=== PATIENT | female | born 1965 | race Caucasian/White ===

== ENCOUNTER 2018-11-01 19:16 | Emergency (ER) | payer OTHER ==
[~2018-11-01] VITALS: Ht 162.5 cm; Wt 86.2 kg
[2018-11-01] MEDS ORDERED: EXCEDRIN EXTRA1 EACH PO (19:28)
[2018-11-01 20:03] LABS: BASO % 0.5 % (0.0-1.0); HEMATOCRIT 38.5 % (37.0-47.0); HEMOGLOBIN 12.6 g/dl (12.0-16.0); LYMPH # 2.7 10*3/uL (1.3-4.4); LYMPH % 42.6 % (27.0-41.0); MEAN CELL VOLUME 87.1 fl (81.0-99.0); MEAN CORPUSCULAR HGB 28.5 pg (27.0-31.0); MEAN CORPUSCULAR HGB CONC 32.7 g/dl (33.0-37.0); MEAN PLATELET VOLUME 8.4 fl (9.6-12.3); MONO # 0.5 10*3/uL (0.1-1.0); MONO % 8.4 % (3.0-9.0); NEUT # 3.1 10*3/uL (2.3-7.9); NEUT % 48.2 % (47.0-73.0); PLATELET COUNT AUTOMATED 240 10*3/uL (130-400); RED BLOOD COUNT 4.42 10*6/uL (4.10-5.10); RED CELL DISTRI WIDTH 12.8 % (0-14.5); WHITE BLOOD COUNT 6.3 10*3/uL (4.8-10.8)
[2018-11-01 20:18] LABS: ALBUMIN 3.7 gm/dl (3.1-4.5); ALKALINE PHOSPHATASE 118 U/L (45-117); BUN 17 mg/dl (7-24); CHLORIDE 108 mmol/L (98-107); LIPASE 196 U/L (73-393); POTASSIUM 3.8 mmol/L (3.5-5.1); SGOT/AST 17 IU/L (3-35); SGPT/ALT 35 U/L (12-78); SODIUM 142 mmol/L (136-145); TOTAL PROTEIN 7.6 gm/dL (6.4-8.2)
[2018-11-01] MEDS ORDERED: PRINIVIL10 MG PO (22:38)
== END 2018-11-01 23:10 | disposition home or self-care (01) ==
LOC: ED 19:16
PROVIDERS: Emergency Medicine Emergency Medical Services
DX: R42 Dizziness and giddiness (principal); I10 Essential (primary) hypertension; M54.2 Cervicalgia; I49.8 Other specified cardiac arrhythmias; Z91.040 Latex allergy status; Z88.5 Allergy status to narcotic agent; Z88.8 Allergy status to other drugs, medicaments and biological substances; Z79.82 Long term (current) use of aspirin; Z79.899 Other long term (current) drug therapy

== ENCOUNTER → 2019-01-16 | Day surgery (SDC) | payer OTHER ==
[~2019-01-16] VITALS: Ht 162.5 cm; Wt 80.3 kg
[~2019-01-16] MED LIST: CYCLOBENZAPRINE5 M3 PO; EXCEDRIN EXTRA1 EACH PO; NEXIUM20 M1 PO; PRINIVIL10 MG PO
[2019-01-16 07:30] VITALS: BP 140/74
[2019-01-16 08:46] VITALS: BP 114/64
[2019-01-16 09:01] VITALS: BP 126/79
[2019-01-16 09:16] VITALS: BP 122/74
== END | disposition home or self-care (01) ==
LOC: SDC 01-14 10:15
DX: Z12.11 Encounter for screening for malignant neoplasm of colon (principal); I10 Essential (primary) hypertension; F41.9 Anxiety disorder, unspecified; Z82.49 Family history of ischemic heart disease and other diseases of the circulatory system; Z98.890 Other specified postprocedural states

== ENCOUNTER → 2019-02-21 | Outpatient (CLI) | payer OTHER ==
[2019-02-21 12:46] LABS: BILIRUBIN NEGATIVE (NEGATIVE); BLOOD TRACE-INTACT (NEGATIVE); CLARITY SL CLOUDY (CLEAR); COLOR YELLOW (YELLOW); GLUCOSE NEGATIVE (NEGATIVE); KETONE NEGATIVE (NEGATIVE); LEUKO ESTERASE NEGATIVE (NEGATIVE); NITRITE NEGATIVE (NEGATIVE); PH 5.5 (5.0-9.0); SPECIFIC GRAVITY 1.025 (1.005-1.030); UROBILINOGEN 0.2 E.U./dl (0.2-1.0)
[2019-02-21 12:48] LABS: ALBUMIN 3.7 gm/dl (3.1-4.5); ALKALINE PHOSPHATASE 129 U/L (45-117); BUN 20 mg/dl (7-24); CHLORIDE 110 mmol/L (98-107); CHOLESTEROL 235 mg/dL (<200); HDL CHOLESTEROL 66 mg/dl (40-60); LDL CHOLESTEROL 117 mg/dL (9-159); POTASSIUM 3.9 mmol/L (3.5-5.1); SGOT/AST 25 IU/L (3-35); SGPT/ALT 53 U/L (12-78); SODIUM 142 mmol/L (136-145); TOTAL PROTEIN 7.4 gm/dL (6.4-8.2); TRIGLYCERIDES 259 mg/dl (<150); VLDL CHOLESTEROL 52 mg/dL (6-40)
[2019-02-21 12:56] LABS: BACTERIA TRACE; MUCOUS 2+
[2019-02-24 13:05] LABS: ANTI-DSDNA ANTIBODIES 096339 <1 IU/mL (0-9)
== END | disposition home or self-care (01) ==
LOC: LAB 11:41
PROVIDERS: Family Medicine
DX: M54.6 Pain in thoracic spine (principal); I10 Essential (primary) hypertension; E66.9 Obesity, unspecified; R07.81 Pleurodynia

== ENCOUNTER 2019-05-21 17:27 | Emergency (ER) | payer OTHER ==
[~2019-05-21] VITALS: Ht 162.5 cm; Wt 81.6 kg
[2019-05-21] MEDS ORDERED: PREDNISONE20 M1 PO (21:39)
[2019-05-21] MEDS ORDERED: VENTOLIN 02.5 MG/3 M INH (21:39)
== END 2019-05-21 21:45 | disposition home or self-care (01) ==
LOC: ED 17:27
DX: T78.1XXA Other adverse food reactions, not elsewhere classified, initial encounter (principal); Z91.018 Allergy to other foods; Z91.040 Latex allergy status; Z88.6 Allergy status to analgesic agent; Z91.010 Allergy to peanuts; Z88.8 Allergy status to other drugs, medicaments and biological substances; Z79.899 Other long term (current) drug therapy; X58.XXXA Exposure to other specified factors, initial encounter

== ENCOUNTER 2019-07-09 19:43 | Emergency (ER) | payer OTHER ==
[~2019-07-09] VITALS: Ht 162.5 cm; Wt 80.7 kg
[~2019-07-09 19:43] MED LIST changes: +PREDNISONE20 M1 PO; +VENTOLIN 02.5 MG/3 M INH
[2019-07-09] MEDS ORDERED: AUGMENTIN 875875 MG PO (20:11)
== END 2019-07-09 22:13 | disposition home or self-care (01) ==
LOC: ED 19:43
DX: S51.851A Open bite of right forearm, initial encounter (principal); I10 Essential (primary) hypertension; F41.9 Anxiety disorder, unspecified; Z88.5 Allergy status to narcotic agent; Z91.040 Latex allergy status; Z91.010 Allergy to peanuts; Z91.018 Allergy to other foods; Z79.899 Other long term (current) drug therapy; W64.XXXA Exposure to other animate mechanical forces, initial encounter; Y93.89 Activity, other specified; Y92.89 Other specified places as the place of occurrence of the external cause; Y99.8 Other external cause status

== ENCOUNTER 2019-07-12 17:12 | Emergency (ER) | payer OTHER ==
[~2019-07-12] VITALS: Ht 162.5 cm; Wt 81.2 kg
[~2019-07-12 17:12] MED LIST changes: +AUGMENTIN 875875 MG PO
== END 2019-07-12 19:10 | disposition home or self-care (01) ==
LOC: ED 17:12
DX: Z23 Encounter for immunization (principal); I10 Essential (primary) hypertension; Z88.6 Allergy status to analgesic agent; Z91.018 Allergy to other foods; Z91.010 Allergy to peanuts; Z88.8 Allergy status to other drugs, medicaments and biological substances; Z91.040 Latex allergy status; Z79.899 Other long term (current) drug therapy

== ENCOUNTER 2019-07-16 18:04 | Emergency (ER) | payer OTHER ==
[~2019-07-16] VITALS: Ht 162.5 cm; Wt 80.7 kg
== END 2019-07-16 19:54 | disposition home or self-care (01) ==
LOC: ED 18:04
DX: Z23 Encounter for immunization (principal); Z88.8 Allergy status to other drugs, medicaments and biological substances; Z91.040 Latex allergy status; Z88.5 Allergy status to narcotic agent; Z91.018 Allergy to other foods; Z79.899 Other long term (current) drug therapy; Z79.82 Long term (current) use of aspirin

== ENCOUNTER 2019-07-23 16:10 | Emergency (ER) | payer OTHER ==
[~2019-07-23] VITALS: Ht 162.5 cm; Wt 80.3 kg
== END 2019-07-23 18:30 | disposition home or self-care (01) ==
LOC: ED 16:10
DX: Z23 Encounter for immunization (principal); Z91.018 Allergy to other foods; Z91.040 Latex allergy status; Z88.5 Allergy status to narcotic agent; Z91.010 Allergy to peanuts; Z79.899 Other long term (current) drug therapy; Z98.890 Other specified postprocedural states

== ENCOUNTER → 2019-12-02 | Outpatient (CLI) | payer OTHER | END | disposition home or self-care (01) | LOC: COVID19 10:02 | PROVIDERS: ATTEND Student in an Organized Health Care Education/Training Program | DX: Z20.828 Contact with and (suspected) exposure to other viral communicable diseases (principal) ==

== ENCOUNTER → 2019-12-09 | Outpatient (CLI) | payer OTHER | END | disposition home or self-care (01) | LOC: RAD 10:35 | PROVIDERS: ATTEND Family Medicine | DX: R06.02 Shortness of breath (principal) ==

== ENCOUNTER 2020-06-16 06:01 | Emergency (ER) | payer OTHER ==
[~2020-06-16] VITALS: Ht 162.5 cm; Wt 87.1 kg
== END 2020-06-16 08:22 | disposition home or self-care (01) ==
LOC: ED 06:01
DX: L55.1 Sunburn of second degree (principal); Z88.8 Allergy status to other drugs, medicaments and biological substances; Z91.040 Latex allergy status; Z91.010 Allergy to peanuts; Z79.899 Other long term (current) drug therapy; Z79.82 Long term (current) use of aspirin

== ENCOUNTER 2020-08-11 19:51 | Emergency (ER) | payer OTHER ==
[~2020-08-11] VITALS: Ht 162.5 cm; Wt 86.2 kg
[2020-08-11 21:21] LABS: BASO % 0.2 % (0.0-1.0); HEMATOCRIT 40.1 % (37.0-47.0); LYMPH # 0.5 10*3/uL (1.3-4.4); LYMPH % 7.9 % (27.0-41.0); MEAN CORPUSCULAR HGB 28.2 pg (27.0-31.0); MEAN CORPUSCULAR HGB CONC 33.2 g/dl (33.0-37.0); MEAN PLATELET VOLUME 8.6 fl (9.6-12.3); MONO # 0.2 10*3/uL (0.1-1.0); NEUT % 87.5 % (47.0-73.0); PLATELET COUNT AUTOMATED 242 10*3/uL (130-400); RED BLOOD COUNT 4.72 10*6/uL (4.10-5.10); WHITE BLOOD COUNT 5.7 10*3/uL (4.8-10.8)
[2020-08-11 21:38] LABS: ALBUMIN 3.7 gm/dl (3.1-4.5); ALKALINE PHOSPHATASE 112 U/L (45-117); BUN 17 mg/dl (7-24); CHLORIDE 107 mmol/L (98-107); CREATININE 0.81 mg/dL (0.55-1.02); LIPASE 93 U/L (73-393); POTASSIUM 4.1 mmol/L (3.5-5.1); SGOT/AST 38 IU/L (3-35); SGPT/ALT 53 U/L (12-78); SODIUM 139 mmol/L (136-145); TOTAL PROTEIN 7.6 gm/dL (6.4-8.2)
[2020-08-11] MEDS ORDERED: ZOFRAN4 MG PO ×2 (22:58→23:00)
== END 2020-08-12 00:14 | disposition home or self-care (01) ==
LOC: ED 19:51
PROVIDERS: Physician Assistant
DX: K52.9 Noninfective gastroenteritis and colitis, unspecified (principal); Z91.040 Latex allergy status; Z88.5 Allergy status to narcotic agent; Z91.018 Allergy to other foods; Z79.899 Other long term (current) drug therapy; Z79.82 Long term (current) use of aspirin

== ENCOUNTER → 2020-09-06 | Outpatient (CLI) | payer OTHER ==
[~2020-09-06] MED LIST changes: +ZOFRAN4 MG PO
== END | disposition home or self-care (01) ==
LOC: RAD 11:44
PROVIDERS: ATTEND Family Medicine
DX: M47.816 Spondylosis without myelopathy or radiculopathy, lumbar region (principal); M50.323 Other cervical disc degeneration at C6-C7 level; M25.78 Osteophyte, vertebrae; M46.02 Spinal enthesopathy, cervical region; M89.38 Hypertrophy of bone, other site; S13.4XXD Sprain of ligaments of cervical spine, subsequent encounter; X58.XXXD Exposure to other specified factors, subsequent encounter

== ENCOUNTER → 2022-12-15 | Outpatient (CLI) | payer OTHER | END | disposition home or self-care (01) | LOC: CT 14:00 | PROVIDERS: ATTEND Student in an Organized Health Care Education/Training Program | DX: N04.9 Nephrotic syndrome with unspecified morphologic changes (principal); R30.0 Dysuria ==

== ENCOUNTER → 2023-02-22 | Outpatient (CLI) | payer OTHER | END | disposition home or self-care (01) | LOC: RAD 12:03 | PROVIDERS: ATTEND Nurse Practitioner Family | DX: U07.1 COVID-19 (principal); J45.31 Mild persistent asthma with (acute) exacerbation ==

== ENCOUNTER → 2023-05-14 | Outpatient (CLI) | payer OTHER ==
[~2023-05-14] MED LIST changes: +ASPIRIN81 M1 PO; +ATORVASTATIN CA40 M1 PO; +DULOXETINE HCL30 MG PO; +HYDROXYZINE HCL25 MG PO; +NORVASC5 MG PO
[2023-05-14 10:17] LABS: BASO % 0.5 % (0.0-1.0); EOS % 0.2 % (1.0-4.0); HEMATOCRIT 43.6 % (37.0-47.0); LYMPH # 2.4 10*3/uL (1.3-4.4); LYMPH % 42.5 % (27.0-41.0); MEAN CELL VOLUME 88.3 fl (81.0-99.0); MEAN CORPUSCULAR HGB 28.9 pg (27.0-31.0); MEAN CORPUSCULAR HGB CONC 32.8 g/dl (33.0-37.0); MEAN PLATELET VOLUME 8.4 fl (9.6-12.3); MONO # 0.4 10*3/uL (0.1-1.0); MONO % 6.3 % (3.0-9.0); NEUT # 2.9 10*3/uL (2.3-7.9); NEUT % 50.3 % (47.0-73.0); PLATELET COUNT AUTOMATED 250 10*3/uL (130-400); RED BLOOD COUNT 4.94 10*6/uL (4.10-5.10); RED CELL DISTRI WIDTH 12.6 % (0-14.5); WHITE BLOOD COUNT 5.7 10*3/uL (4.8-10.8)
[2023-05-14 10:51] LABS: ALKALINE PHOSPHATASE 79 U/L (46-116); BUN 15 mg/dl (9-23); CHLORIDE 104 mmol/L (98-107); POTASSIUM 4.3 mmol/L (3.4-5.1); SGPT/ALT 25 U/L (5-49); TOTAL PROTEIN 7.2 gm/dL (6.0-8.0)
== END | disposition home or self-care (01) ==
LOC: LAB 09:54
PROVIDERS: ATTEND Internal Medicine
DX: E87.6 Hypokalemia (principal); K21.9 Gastro-esophageal reflux disease without esophagitis; R07.9 Chest pain, unspecified